=== PATIENT | female | born 1955 | race Caucasian/White ===

== ENCOUNTER 2018-09-04 13:42 | Emergency (ER) | payer OTHER ==
[2018-09-04] MEDS ORDERED: SODIUM CHLORIDE 0.9% 500 ML 500 ML IV STA (14:21)
[2018-09-04] MEDS ORDERED: DIAZEPAM 5 MG/ML 2 ML INJ IVP STA (14:21)
[2018-09-04] MEDS ORDERED: MECLIZINE 25 MG TAB PO STA (14:21)
--- NOTE | 2018-09-04 14:41 | ED ---
General Adult HPI - General Chief complaint: Dizziness Stated complaint: left side facial tingling/lightheaded/dizzy Time Seen by Provider: 09/04/18 13:45 Source: patient, RN notes reviewed Mode of arrival: ambulatory Limitations: no limitations - History of Present Illness Initial comments: This is a 62-year-old female who presents emergency Department complaining of dizziness. Patient states she feels like the room was moving. Patient states if she moves her head it's definitely worse and closing her eyes almost resolved completely. Patient states she was admitted for this and some paresthesias to her left cheek about 2 months ago. Patient states she was again admitted within the last week for the same symptoms have Come up with any solution or answer as to what is going on. Patient states she was sent home with some meclizine but she has yet to take any. Recent denies any chest pain or palpitations. Patient denies shortness of breath or difficulty breathing. Patient denies any nausea vomiting. Patient denies any recent fever chills. Patient denies headache patient denies numbness weakness. Patient denies any episode that she felt near syncopal. Recent states he symptoms are exactly the same she's had since June and they have been intermittent. Patient states in between her hospital visit she has very subtle symptoms are very similar to this but they don't last very long. - Related Data Home Medications Medication Instructions Recorded Confirmed Aspirin EC [Ecotrin Low Dose] 81 mg PO DAILY 09/04/18 09/04/18 Atorvastatin [Lipitor] 40 mg PO HS 09/04/18 09/04/18 Cetirizine HCl [Zyrtec] 10 mg PO DAILY 09/04/18 09/04/18 Cholecalciferol (Vitamin D3) 2,000 unit PO DAILY 09/04/18 09/04/18 [Vitamin D3] Clopidogrel Bisulfate [Plavix] 75 mg PO DAILY 09/04/18 09/04/18 FLUoxetine HCL [PROzac] 10 mg PO DAILY 09/04/18 09/04/18 Fluticasone Nasal [place] [Flonase 2 spray EA NOSTRIL DAILY PRN 09/04/18 09/04/18 Nasal [place]] Hydrocortisone Cream 1 applic TOPICAL BID PRN 09/04/18 09/04/18 [Hydrocortisone 1% Cream] Lisinopril [Zestril] 20 mg PO DAILY 09/04/18 09/04/18 Meclizine [Antivert] 25 mg PO TID PRN 09/04/18 09/04/18 Tolterodine Tartrate [Detrol LA] 4 mg PO DAILY 09/04/18 09/04/18 Triamcinolone 0.1% Cream [Kenalog 1 applic TOPICAL BID 09/04/18 09/04/18 0.1% Cream] Allergies Allergy/AdvReac Type Severity Reaction Status Date / Time codeine Allergy Anaphylaxis Verified 09/04/18 14:07 morphine Allergy Unknown Verified 09/04/18 14:07 Penicillins Allergy Unknown Verified 09/04/18 14:07 Review of Systems ROS Statement: Those systems with pertinent positive or pertinent negative responses have been documented in the HPI. ROS Other: All systems not noted in ROS Statement are negative. Past Medical History Past Medical History: Coronary Artery Disease (CAD), CVA/TIA, Hyperlipidemia, Hypertension History of Any Multi-Drug Resistant Organisms: None Reported Past Surgical History: Hysterectomy Past Psychological History: No Psychological Hx Reported Smoking Status: Former smoker Past Alcohol Use History: None Reported Past Drug Use History: None Reported General Exam - General Exam Comments Initial Comments: GENERAL: Patient is well-developed and well-nourished. Patient is nontoxic and well- hydrated and is in mild distress. ENT: Neck is soft and supple. No significant lymphadenopathy is noted. Oropharynx is clear. Moist mucous membranes. Neck has full range of motion without eliciting any pain. EYES: The sclera were anicteric and conjunctiva were pink and moist. Extraocular movements were intact and pupils were equal round and reactive to light. Eyelids were unremarkable. PULMONARY: Unlabored respirations. Good breath sounds bilaterally. No audible rales rhonchi or wheezing was noted. CARDIOVASCULAR: There is a regular rate and rhythm without any murmurs gallops or rubs. ABDOMEN: Soft and nontender with normal bowel sounds. SKIN: Skin is clear with no lesions or rashes and otherwise unremarkable. NEUROLOGIC: Patient is alert and oriented x3. Cranial nerves II through XII are grossly intact. Motor and sensory are also intact. Normal speech, volume and content. Symmetrical smile. Cerebellar exam grossly intact. MUSCULOSKELETAL: Normal extremities with adequate strength and full range of motion. No lower extremity swelling or edema. No calf tenderness. LYMPHATICS: No significant lymphadenopathy is noted PSYCHIATRIC: Normal psychiatric evaluation. Limitations: no limitations Course Vital Signs 09/04/18 09/04/18 13:44 16:00 Temperature 98.8 F Pulse Rate 95 76 Respiratory 18 29 H Rate Blood Pressure 118/61 121/76 O2 Sat by Pulse 100 Oximetry Medical Decision Making - Medical Decision Making EKG shows normal sinus rhythm at 83 bpm SC interval 144 tresses 98 QT interval 374 QTC is 439. Patient's EKG shows no ST segment elevation or depression or T wave abnormalities are noted. I did not repeat a computed tomography scan because the patient has had CT scans and MRIs within the last week. Patient was still very vertiginous in the emergency department and had facial paresthesias but no actual loss of sensation. - Lab Data Result diagrams: 09/04/18 14:30 09/04/18 14:30 Lab Results 09/04/18 09/04/18 09/04/18 Range/Units 14:30 14:30 14:30 WBC 7.8 (3.8-10.6) k/uL RBC 5.16 (3.80-5.40) m/uL Hgb 14.2 (11.4-16.0) gm/dL Hct 44.2 (34.0-46.0) % MCV 85.7 (80.0-100.0) fL MCH 27.5 (25.0-35.0) pg MCHC 32.1 (31.0-37.0) g/dL RDW 13.6 (11.5-15.5) % Plt Count 365 (150-450) k/uL Neutrophils % 68 % Lymphocytes % 22 % Monocytes % 6 % Eosinophils % 2 % Basophils % 1 % Neutrophils # 5.3 (1.3-7.7) k/uL Lymphocytes # 1.7 (1.0-4.8) k/uL Monocytes # 0.5 (0-1.0) k/uL Eosinophils # 0.1 (0-0.7) k/uL Basophils # 0.1 (0-0.2) k/uL PT 9.9 (9.0-12.0) sec INR 0.9 (<1.2) APTT 24.2 (22.0-30.0) sec Sodium 139 (137-145) mmol/L Potassium 4.6 (3.5-5.1) mmol/L Chloride 104 (98-107) mmol/L Carbon Dioxide 24 (22-30) mmol/L Anion Gap 11 mmol/L BUN 12 (7-17) mg/dL Creatinine 0.63 (0.52-1.04) mg/dL Est GFR (CKD-EPI)AfAm >90 (>60 ml/min/1.73 sqM) Est GFR (CKD-EPI)NonAf >90 (>60 ml/min/1.73 sqM) Glucose 96 (74-99) mg/dL Calcium 10.3 H (8.4-10.2) mg/dL Magnesium 2.0 (1.6-2.3) mg/dL Total Bilirubin 0.7 (0.2-1.3) mg/dL AST 26 (14-36) U/L ALT 45 (9-52) U/L Alkaline Phosphatase 94 (38-126) U/L Troponin I (0.000-0.034) ng/mL Total Protein 7.5 (6.3-8.2) g/dL Albumin 4.9 (3.5-5.0) g/dL 09/04/18 Range/Units 14:30 WBC (3.8-10.6) k/uL RBC (3.80-5.40) m/uL Hgb (11.4-16.0) gm/dL Hct (34.0-46.0) % MCV (80.0-100.0) fL MCH (25.0-35.0) pg MCHC (31.0-37.0) g/dL RDW (11.5-15.5) % Plt Count (150-450) k/uL Neutrophils % % Lymphocytes % % Monocytes % % Eosinophils % % Basophils % % Neutrophils # (1.3-7.7) k/uL Lymphocytes # (1.0-4.8) k/uL Monocytes # (0-1.0) k/uL Eosinophils # (0-0.7) k/uL Basophils # (0-0.2) k/uL PT (9.0-12.0) sec INR (<1.2) APTT (22.0-30.0) sec Sodium (137-145) mmol/L Potassium (3.5-5.1) mmol/L Chloride (98-107) mmol/L Carbon Dioxide (22-30) mmol/L Anion Gap mmol/L BUN (7-17) mg/dL Creatinine (0.52-1.04) mg/dL Est GFR (CKD-EPI)AfAm (>60 ml/min/1.73 sqM) Est GFR (CKD-EPI)NonAf (>60 ml/min/1.73 sqM) Glucose (74-99) mg/dL Calcium (8.4-10.2) mg/dL Magnesium (1.6-2.3) mg/dL Total Bilirubin (0.2-1.3) mg/dL AST (14-36) U/L ALT (9-52) U/L Alkaline Phosphatase (38-126) U/L Troponin I <0.012 (0.000-0.034) ng/mL Total Protein (6.3-8.2) g/dL Albumin (3.5-5.0) g/dL Disposition Clinical Impression: Vertigo, Facial paresthesia Disposition: OTHER INSTITUTION NOT DEFINED Referrals: Santo Pollard MD [Primary Care Provider] - 1-2 days Time of Disposition: 17:07 - Out of Hospital Transfer - Req. Specs Out of Hospital Transfer - Requested Specifics: Other Emergency Center ([facility])
[2018-09-04 15:01] LABS: INR 0.9 (<1.2); Partial Thromboplastin Time 24.2 sec (22.0-30.0); Prothrombin Time 9.9 sec (9.0-12.0)
[2018-09-04 15:09] LABS: Basophils # (A) 0.1 k/uL (0-0.2); Basophils % (A) 1 %; Eosinophils # (A) 0.1 k/uL (0-0.7); Eosinophils % (A) 2 %; HCT 44.2 % (34.0-46.0); HGB 14.2 gm/dL (11.4-16.0); Lymphocytes # (A) 1.7 k/uL (1.0-4.8); Lymphocytes % (A) 22 %; MCH 27.5 pg (25.0-35.0); MCHC 32.1 g/dL (31.0-37.0); MCV 85.7 fL (80.0-100.0); Mean Platelet Volume 7.6; Monocytes # (A) 0.5 k/uL (0-1.0); Monocytes % (A) 6 %; Neutrophils # (A) 5.3 k/uL (1.3-7.7); Neutrophils % (A) 68 %; Platelet Count 365 k/uL (150-450); RBC 5.16 m/uL (3.80-5.40); RDW 13.6 % (11.5-15.5); WBC 7.8 k/uL (3.8-10.6)
[2018-09-04 15:15] LABS: ALT 45 U/L (9-52); AST 26 U/L (14-36); Albumin 4.9 g/dL (3.5-5.0); Alkaline Phosphatase 94 U/L (38-126); Anion Gap 11 mmol/L; Blood Urea Nitrogen 12 mg/dL (7-17); Calcium 10.3 mg/dL (8.4-10.2); Carbon Dioxide 24 mmol/L (22-30); Chloride 104 mmol/L (98-107); Glucose 96 mg/dL (74-99); Potassium 4.6 mmol/L (3.5-5.1); Sodium 139 mmol/L (137-145); Total Bilirubin 0.7 mg/dL (0.2-1.3); Total Protein 7.5 g/dL (6.3-8.2)
--- NOTE | 2018-09-04 15:48 | XR ---
EXAMINATION TYPE: XR chest 2V DATE OF EXAM: 09/04/2018 COMPARISON: NONE HISTORY: Increasing left-sided facial numbness and dizziness 2 months. Chest pain. TECHNIQUE: Frontal and lateral views of the chest are obtained. FINDINGS: Overlying EKG leads are present. There is no focal air space opacity, pleural effusion, or pneumothorax seen. The cardiac silhouette size is mildly enlarged. The osseous structures are int act. IMPRESSION: Mild cardiomegaly without acute pulmonary process.
[2018-09-04 17:13] VITALS: RESP 18
[2018-09-04 18:35] VITALS: BP 149/88; PULSE 87; TEMP 98.6
== END 2018-09-04 18:35 | disposition other institution (70) ==
LOC: EC 13:42
DX: R42 Dizziness and giddiness (principal); R20.2 Paresthesia of skin; I25.10 Atherosclerotic heart disease of native coronary artery without angina pectoris; E78.5 Hyperlipidemia, unspecified; I10 Essential (primary) hypertension; Z86.73 Personal history of transient ischemic attack (TIA), and cerebral infarction without residual deficits; Z87.891 Personal history of nicotine dependence; Z90.710 Acquired absence of both cervix and uterus; Z79.02 Long term (current) use of antithrombotics/antiplatelets; Z79.82 Long term (current) use of aspirin; Z79.899 Other long term (current) drug therapy
CPT/HCPCS: 36415; 93005; 80053; 83735; 84484; 85025; 85610; 85730; 71046; 99285; 96374; 96361; J3360

== ENCOUNTER 2018-09-23 15:59 | Emergency (ER) | payer OTHER ==
[2018-09-23] MEDS ORDERED: SODIUM CHLORIDE 0.9% 1,000 ML IV STA ×2 (16:23→18:31)
[2018-09-23] MEDS ORDERED: SODIUM CHLORIDE 0.9% 500 ML 500 ML IV STA (16:23)
[2018-09-23] MEDS ORDERED: LORazepam 2 MG/ML INJ IV STA (16:23)
[2018-09-23 16:57] LABS: Basophils # (A) 0.1 k/uL (0-0.2); Basophils % (A) 1 %; Eosinophils # (A) 0.1 k/uL (0-0.7); Eosinophils % (A) 1 %; HCT 42.4 % (34.0-46.0); HGB 14.3 gm/dL (11.4-16.0); Lymphocytes # (A) 1.4 k/uL (1.0-4.8); Lymphocytes % (A) 18 %; MCH 28.6 pg (25.0-35.0); MCHC 33.7 g/dL (31.0-37.0); Mean Platelet Volume 7.4; Monocytes # (A) 0.5 k/uL (0-1.0); Monocytes % (A) 7 %; Neutrophils # (A) 5.8 k/uL (1.3-7.7); Neutrophils % (A) 72 %; Platelet Count 332 k/uL (150-450); RBC 4.99 m/uL (3.80-5.40); RDW 13.2 % (11.5-15.5); WBC 8.1 k/uL (3.8-10.6)
[2018-09-23 17:05] LABS: Anion Gap 14 mmol/L; Blood Urea Nitrogen 13 mg/dL (7-17); Calcium 10.6 mg/dL (8.4-10.2); Carbon Dioxide 18 mmol/L (22-30); Chloride 110 mmol/L (98-107); Glucose 95 mg/dL (74-99); Potassium 4.4 mmol/L (3.5-5.1); Sodium 142 mmol/L (137-145)
--- NOTE | 2018-09-23 17:08 | ED ---
Dizziness HPI - General Chief Complaint: Dizziness Stated Complaint: tremors Time Seen by Provider: 09/23/18 16:13 Source: patient, EMS Mode of arrival: EMS Limitations: no limitations - History of Present Illness Initial Comments: This 63-year-old white female presents with complaint of some dizziness as well as tremor, lightheadedness, and shortness of breath. She relates that she's had similar symptoms for the past 3 months. She apparently has been worked up at [facility] and has been seeing a neurologist out of [facility]. She was sent today to have an MRI scan when her symptoms worsened. She states that she was able once to have a MRI scan done but was sedated and essentially put completely out for it. She otherwise is claustrophobic. She tried to have an MRI and an open MRI scan facility today but her symptoms apparently significantly increased. She has been hyperventilating and states that her legs feel heavy. She states that the lightheadedness has worsened and she has significant dizziness worse when she opens her eyes. She apparently does have a history of vertigo as well. She did try and Antivert without any relief. She denies any other complaints or modifying factors. - Related Data Home Medications Medication Instructions Recorded Confirmed Aspirin EC [Ecotrin Low Dose] 81 mg PO DAILY 09/04/18 09/23/18 Atorvastatin [Lipitor] 40 mg PO HS 09/04/18 09/23/18 Cetirizine HCl [Zyrtec] 10 mg PO DAILY 09/04/18 09/23/18 Cholecalciferol (Vitamin D3) 2,000 unit PO DAILY 09/04/18 09/23/18 [Vitamin D3] Clopidogrel Bisulfate [Plavix] 75 mg PO DAILY 09/04/18 09/23/18 FLUoxetine HCL [PROzac] 10 mg PO DAILY 09/04/18 09/23/18 Fluticasone Nasal [place] [Flonase 2 spray EA NOSTRIL DAILY PRN 09/04/18 09/23/18 Nasal [place]] Lisinopril [Zestril] 20 mg PO DAILY 09/04/18 09/23/18 Meclizine [Antivert] 25 mg PO TID PRN 09/04/18 09/23/18 Tolterodine Tartrate [Detrol LA] 4 mg PO DAILY 09/04/18 09/23/18 Triamcinolone 0.1% Cream [Kenalog 1 applic TOPICAL BID 09/04/18 09/23/18 0.1% Cream] Allergies Allergy/AdvReac Type Severity Reaction Status Date / Time codeine Allergy Anaphylaxis Verified 09/23/18 16:32 morphine Allergy Unknown Verified 09/23/18 16:32 Penicillins Allergy Unknown Verified 09/23/18 16:32 Review of Systems ROS Statement: Those systems with pertinent positive or pertinent negative responses have been documented in the HPI. ROS Other: All systems not noted in ROS Statement are negative. Past Medical History Past Medical History: Coronary Artery Disease (CAD), CVA/TIA, Hyperlipidemia, Hypertension History of Any Multi-Drug Resistant Organisms: None Reported Past Surgical History: Hysterectomy Past Psychological History: No Psychological Hx Reported Smoking Status: Former smoker Past Alcohol Use History: None Reported Past Drug Use History: None Reported General Exam - General Exam Comments Initial Comments: GENERAL: The patient is well nourished and well hydrated. VITAL SIGNS: Heart rate, blood pressure, respiratory rate reviewed as recorded in nurse's notes. EYES: Pupils are round and reactive. Extraocular movements are intact. No conjunctival / lid redness or swelling. ENT: No external evidence of injury, swelling, or ecchymosis. Airway is patent. Throat is clear. NECK: Nontender. No swelling or evidence of injury. No subcutaneous emphysema. Trachea is midline. No thyroid mass. HEART: Regular rate and rhythm. Good peripheral pulses. LUNGS/CHEST: Breath sounds clear and equal bilaterally. No rales, rhonchi, or wheezes. No ecchymosis, subcutaneous emphysema, or tenderness. ABDOMEN: Abdomen soft without tenderness. No palpable masses or organomegaly. No peritoneal signs. No abdominal wall swelling or ecchymosis. EXTREMITIES: No extremity tenderness. Normal muscle tone and function. No thoracolumbar tenderness. NEUROLOGIC: Sensation is grossly intact. Cranial nerve exam reveals face is symmetrical, tongue is midline, speech is clear. The patient does not have any extremity weakness or facial droop noted. Mild tremor noted of upper extremities. SKIN: No abrasions or ecchymosis is noted. No induration or masses noted. PSYCHIATRIC: Alert and oriented. She appears fairly anxious and is hyperventilating. Limitations: no limitations Course Vital Signs 09/23/18 09/23/18 09/23/18 16:01 17:32 18:47 Temperature 98.8 F Pulse Rate 93 91 90 Respiratory 18 18 20 Rate Blood Pressure 144/79 116/78 148/87 O2 Sat by Pulse 99 96 97 Oximetry Medical Decision Making - Medical Decision Making The patient was seen and examined. All diagnostics were reviewed. An IV is established and she receives Ativan 1 g IV. The patient was placed on quality assurance monitor final no is identified. The EKG shows a normal sinus rhythm at a rate of 88. There is no acute ST-T wave changes identified. There may be an incomplete right bundle-branch block. The AL intervals 142, QRS duration is 102, and the QTc interval is 498. Overall, she appears quite anxious and is also having vertigo symptoms and is felt as though the Ativan should help. She is, overall, feeling improved on recheck. She states that the vertigo still is fairly persistent but her legs do not feel heavy anymore and her hyperventilation and lightheadedness are improved. The laboratory overall is unremarkable except for a slight decrease in her CO2. Additional fluids are given. The computed tomography scan of the brain does show evidence of old lacunar infarct. The case is discussed with our radiologist and regard to the acuity of the infarct. He feels as though this likely is subacute in nature but within the last 1 week. She is able to ambulate on recheck but is extremely unsteady and is unable to do so without assistance. She states that the vertigo still is persistent. It is felt as though she would benefit from admission and further neurologic evaluation and potential additional testing. She likely will need significant sedation for a MRI scan in the future. She states that her neurologist is out of [place], Dr. Pretty, and she would like to be transferred to that facility. The case is discussed with Dr. Robertson and he is agreeable with accepting patient. Appropriate transfer paperwork is completed. She will be transferred via EMS. - Lab Data Result diagrams: 09/23/18 16:36 09/23/18 16:36 Lab Results 09/23/18 09/23/18 Range/Units 16:36 16:36 WBC 8.1 (3.8-10.6) k/uL RBC 4.99 (3.80-5.40) m/uL Hgb 14.3 (11.4-16.0) gm/dL Hct 42.4 (34.0-46.0) % MCV 85.0 (80.0-100.0) fL MCH 28.6 (25.0-35.0) pg MCHC 33.7 (31.0-37.0) g/dL RDW 13.2 (11.5-15.5) % Plt Count 332 (150-450) k/uL Neutrophils % 72 % Lymphocytes % 18 % Monocytes % 7 % Eosinophils % 1 % Basophils % 1 % Neutrophils # 5.8 (1.3-7.7) k/uL Lymphocytes # 1.4 (1.0-4.8) k/uL Monocytes # 0.5 (0-1.0) k/uL Eosinophils # 0.1 (0-0.7) k/uL Basophils # 0.1 (0-0.2) k/uL Sodium 142 (137-145) mmol/L Potassium 4.4 (3.5-5.1) mmol/L Chloride 110 H (98-107) mmol/L Carbon Dioxide 18 L (22-30) mmol/L Anion Gap 14 mmol/L BUN 13 (7-17) mg/dL Creatinine 0.60 (0.52-1.04) mg/dL Est GFR (CKD-EPI)AfAm >90 (>60 ml/min/1.73 sqM) Est GFR (CKD-EPI)NonAf >90 (>60 ml/min/1.73 sqM) Glucose 95 (74-99) mg/dL Calcium 10.6 H (8.4-10.2) mg/dL Disposition Clinical Impression: Anxiety reaction, Claustrophobia, Vertigo, Tremor, Lightheadedness, Hypertension, Lacunar infarction Disposition: OTHER INSTITUTION NOT DEFINED Condition: Fair Is patient prescribed a controlled substance at d/c from ED?: No Time of Disposition: 19:04 - Out of Hospital Transfer - Req. Specs Out of Hospital Transfer - Requested Specifics: Other Emergency Center ([facility]
--- NOTE | 2018-09-23 17:46 | CT ---
EXAMINATION TYPE: CT brain wo con DATE OF EXAM: 09/23/2018 COMPARISON: None HISTORY: Dizziness and sense of falling for [address] DLP: 1129.4 mGycm Automated exposure control for dose reduction was used. FINDINGS: There is poorly marginated 2 x 1 cm area of hypodensity in the left posterior frontal lobe white cuco er. There is no mass effect nor midline shift. There is no sign of intracranial hemorrhage. The elza rium is intact. IMPRESSION: LEFT SIDE WHITE MATTER HYPODENSITY CONSISTENT WITH LACUNAR INFARCT. NO HEMORRHAGE. NO CORTICAL INFARC T SEEN.
[2018-09-23] MEDS ORDERED: ASPIRIN 81 MG PO STA (18:31)
[2018-09-23 20:20] VITALS: BP 143/85; PULSE 79; RESP 18; TEMP 98.9
== END 2018-09-23 20:26 | disposition other institution (70) ==
LOC: EC 15:59
DX: F41.1 Generalized anxiety disorder (principal); F40.240 Claustrophobia; I10 Essential (primary) hypertension; R25.1 Tremor, unspecified; R42 Dizziness and giddiness; I25.10 Atherosclerotic heart disease of native coronary artery without angina pectoris; E78.5 Hyperlipidemia, unspecified; Z79.02 Long term (current) use of antithrombotics/antiplatelets; Z79.82 Long term (current) use of aspirin; Z79.899 Other long term (current) drug therapy; Z88.0 Allergy status to penicillin; Z88.5 Allergy status to narcotic agent; Z87.891 Personal history of nicotine dependence; Z86.73 Personal history of transient ischemic attack (TIA), and cerebral infarction without residual deficits
CPT/HCPCS: 36415; 93005; 80048; 85025; 70450; 99285; 96374; 96361 ×4; J2060

== ENCOUNTER → 2022-08-18 | Outpatient (CLI) | payer MEDICARE ==
--- NOTE | 2022-08-20 07:31 | PE ---
EXAMINATION TYPE: PET CT fusion skull to thigh DATE OF EXAM: 08/18/2022 COMPARISON: Chest CT July 27, 2022 HISTORY: Solitary pulmonary nodule, abnormal CT. TECHNIQUE: Following the intravenous administration of 13.16 mCi of F-18 FDG, whole body images are performed from the skull base to the midthigh. Images are reviewed on the computer in the coronal, a xial, and sagittal planes. Reconstructed rotating images are created on independent workstation and reviewed on the computer. A localization and attenuation correction CT is performed in conjunction with the PET scan. Blood glucose level equals 76. SCAN: Initial Scan FINDINGS: SKULL BASE AND NECK: Symmetric prominent uptake at the vocal cords is present in product of phonatio n. No suspicious abnormal hypermetabolic uptake. CHEST, MEDIASTINUM, AND HILAR REGION: Persistent right upper lung posterior nodule or nodular consoli dation measuring 2.7 x 2.5 cm axial image 68 with mild hypermetabolic uptake, max SUV is 2.51. Additi onal second area of spiculated nodule or nodular consolidation anterior inferior to this measuring 2. 4 x 1.3 cm on axial image 77 shows minimal hypermetabolic uptake, max SUV less than 2.0. There are ne ar 1.0 cm nodules and/or nodular consolidations in the lateral left lower lung redemonstrated. Refere nce axial images 94 and 96. No hypermetabolic thoracic lymph nodes. ABDOMEN AND PELVIS: Normal excretion is present. No hypermetabolic adrenal masses. No areas of abnorm al hypermetabolic uptake. OSSEOUS STRUCTURES: No areas of abnormal hypermetabolic uptake. OTHER CT: Enlarged pulmonary arteries consistent with pulmonary artery hypertension. Clinical splenic hilum are seen. Diverticula throughout the colon is present. Uterus is surgically ab sent. IMPRESSION: Thoracic findings as above could reflect bilateral multifocal acute infectious process. C orrelate clinically. However neoplasm such as metastatic disease remains in the differential. Correl ate clinically. Short-term follow-up CT scan in 2 -3 months time would be beneficial.
== END | disposition home or self-care (01) ==
LOC: RADPETMAIN 14:22
PROVIDERS: ATTEND Internal Medicine Critical Care Medicine
DX: R91.1 Solitary pulmonary nodule (principal)
CPT/HCPCS: 78815; A9552

== ENCOUNTER 2022-10-12 10:19 | Day surgery (SDC) | payer MEDICARE ==
[~2022-10-12 10:19] MED LIST: LACTATED RINGERS 1,000 ML IV SCH; LIDOCAINE 1% (10MG/ML) FOR IV START INTRADERMA PRN
[2022-10-12] MEDS ORDERED: ONDANSETRON 4 MG/2 ML VIAL ONE (11:20)
[2022-10-12] MEDS ORDERED: ONDANSETRON 4 MG/2 ML VIAL IVP ONE (11:22)
[2022-10-12] MEDS ORDERED: DEXAMETHASONE SOD PHOSPHATE 4 MG/ML 1 ML VIAL IVP ONE (11:23)
--- NOTE | 2022-10-12 11:52 | CT ---
EXAMINATION TYPE: CT chest wo con CT DLP: 477.7 mGycm, Automated exposure control for dose reduction was used. DATE OF EXAM: 10/12/2022 10:49 AM COMPARISON: CT chest 07/27/2022, PET 08/18/2022 CLINICAL INDICATION:Female, 67 years old with history of pulmonary nodules;, Ion bronchoscopy. TECHNIQUE: Multiple axial images were obtained through the chest. Sagittal and coronal reformats were created for review. Contrast used: none. Oral contrast used: none. FINDINGS: LUNGS/ PLEURA: Interval decrease in size of pulmonary nodules. * Right upper lobe 4 mm series 4 image 81, previously 9 mm. * Right upper lobe posterior groundglass consolidative changes measuring somewhat disconnected with 2 nodules by groundglass opacity in today's exam measuring in totality 27 x 13 mm, Previous ly more solid-appearing and 29 x 25 cm. * Right upper lobe more anterior pulmonary nodule now measuring 10 x 10 mm, previously 18 x 21 mm wi th surrounding groundglass on prior exam. * Right lower lobe 4 mm image 191, previously not visualized. * Right lower lobe peripheral nodules now measuring 3 mm, previously 4 mm and more posteriorly near the diaphragm measuring 8 mm image 224, previously 11 mm. * Left anterior lower lobe nodule measuring 6 mm, previously 7 mm with surrounding groundglass. * Lingular nodule measuring 7 mm, previously 8 mm No focal consolidation, pneumothorax or pleural effusion. AIRWAY: Patent and unremarkable. HEART: Size within normal limits. Coronary artery atherosclerosis. Aortic valve leaflet calcification s. MEDIASTINUM: No gross evidence of adenopathy. VASCULATURE: No aortic aneurysm. MUSCULOSKELETAL: No acute osseous abnormalities SOFT TISSUES/LYMPH NODES: Posterior right thyroid gland nodule measuring 15 mm. LOWER NECK: No significant findings. UPPER ABDOMEN: Suspected embolic coil material in the splenic hilum. Low-attenuation to the liver par enchyma. IMPRESSION: 1. Scattered pulmonary nodules, a majority of which have decreased in size compared to prior. Some o f these have a groundglass halo. Correlate with pathology, some of the appearance of hazy ground glas s halo suggestive of angioinvasive with other differentials including metastatic disease versus other infectious processes. Clinical correlation advised. 2. Right posterior thyroid gland nodule measuring 15 mm similar to prior. 3. No lymphadenopathy identified.
[2022-10-12] MEDS ORDERED: SUCCINYLCHOLINE CHLORIDE 200 MG/10 ML VIAL IV ONE (12:46)
[2022-10-12] MEDS ORDERED: LIDOCAINE 2% INJ 20 MG/ML (2 ML VIAL) ONE (12:46)
[2022-10-12] MEDS ORDERED: GLYCOPYRROLATE 0.2 MG/ML 2 ML VIAL ONE (12:46)
[2022-10-12] MEDS ORDERED: KETAMINE 10 MG/ML 20 ML VIAL ONE (12:46)
[2022-10-12] MEDS ORDERED: fentaNYL (PF) 50 MCG/ML 2 ML AMP ONE (12:46)
[2022-10-12] MEDS ORDERED: MIDAZOLAM 2 MG/2 ML VIAL ONE (12:46)
[2022-10-12] MEDS ORDERED: PROPOFOL 10 MG/ML 20 ML VIAL IV ONE (12:46)
[2022-10-12] MEDS ORDERED: NEOSTIGMINE 1 MG/ML 10 ML VIAL ONE (12:46)
--- NOTE | 2022-10-12 14:13 | P.PCN ---
Date of Procedure: 10/12/22 Operative Findings: Preoperative Diagnosis: Right upper lobe lesions (#1 and #2) Postoperative Diagnosis: Right upper lobe lesions (#1 and #2) Procedure(s) Performed: Flexible bronchoscopy Robotic-assisted bronchoscopy and addition to radial ultrasound evaluation of the lung lesions Robotic-assisted test monitor needle aspirate, transbronchial biopsies, transbronchial brushing of the rightupper lobe mass in addition to a bronchioloalveolar lavage (lesions #1 and #2) Anesthesia: DANIALA Surgeon: Durga Albert Estimated Blood Loss (ml): 0 Pathology: other Condition: stable Disposition: same day Operative Findings: A physical exam was performed. Informed consent was obtained from the patient after explaining all the risks (pneumothorax, life threatening bleeding, infection and adverse effects due to medications), benefits and alternatives to the procedure which the patient appeared to understand and so stated. The patient was connected to the monitoring devices. General anesthesia was induced and the patient was intubated by anesthesia. A final timeout was performed and the procedure confirmed by the attending staff bronchoscopist. The bronchoscope was inserted and the airway examined. The flexible bronchoscope was removed and the robotic bronchoscope was inserted. Registration was completed. I next guided the robotic bronchoscope using the navigation system into the right upper lobe anterior segment segment. Once in proper position, the bronchoscope was frozen. The radial EBUS probe was placed through the bronchoscope and confirmed abnormal u/s images vs normal lung. A needle was placed through the working channel and under fluoroscopic guidance, we sampled the area thought to have the mass twice. We then used a cloud biopsy pattern with ultrasound confirmation for 4 additional passes with the needle. U/S evaluation was then used to reconfirm location. Forceps were next introduced through working channel and extended the appropriate distance and 3 transbronchial biopsies were performed using fluoroscopic guidance. The u/s probe was then reinserted to confirm location. When confirmed this process was repeated for a total of 5-6 transbronchial biopsies. After reassessment with EBUS, a brush was placed through the extendable working channel for 1 pass with fluoroscopic guidance. U/S evaluation was then used to confirm location. 20ml of saline was then instilled into the area of the lesion. The robotic br onchoscope was removed and the airway inspected with a flexible bronchoscope and 10 ml of effluent from the BAL was collected. The same procedure was also done for lesion #2. The catheter was navigated to the right upper lobe anterior segment thyroid lesion #2. Using same technique with robotic and radial ultrasound guidance, transbronchial needle aspirate, transbronchial biopsies of lesion #2 was done. A bronchioloalveolar lavage of the right upper lobe lesion #2 was also done. The flexible bronchoscope was used to therapeutic airway suctioning. Fluoroscopic check for pneumothorax was negative upon completion of the procedure. There was 0 ml blood loss with the procedure. FINDINGS: 1.The airway examination revealed some narrowing of the sub segment leading to the right upper lobe pulmonary nodule. The rest of the airways appeared normal 2 Successful navigation, ultrasonographic identification, and biopsies of right upper lobe mass (lesion 1 and lesion #2) RECOMMENDATIONS: Await pathology and cytology results The referring physician will be alerted to the results when available. The patient was advised to follow up with the referring physician with the biopsy results Patient will be called with results.
[2022-10-12 14:19] VITALS: TEMP 97.2
--- NOTE | 2022-10-12 14:51 | XR ---
EXAMINATION TYPE: XR chest 1V DATE OF EXAM: 10/12/2022 COMPARISON: 09/04/2018 HISTORY: 67 year-old female post biopsy TECHNIQUE: Single frontal view of the chest is obtained. FINDINGS: Heart upper limits of normal in size. Focal opacity right midlung. New focal opacity media l right upper lobe. Some stranding areas of atelectasis bilaterally. No pleural effusion. Metallic co ils left upper quadrant. IMPRESSION: New focal opacities medial right upper lobe and right midlung. Findings likely correspond to some pos tbiopsy change/contusion. No appreciable pneumothorax.
[2022-10-12 15:38] VITALS: RESP 16
[2022-10-12 15:55] VITALS: BP 132/82; PULSE 64
--- NOTE | 2022-10-12 19:51 | FL ---
EXAMINATION TYPE: FL bronchoscopy DATE OF EXAM: 10/12/2022 FLUOROSCOPY Fluoroscopy time of 4 minutes 6 seconds was used during bronchoscopy for pulmonary nodule. 2 image/s document/s the procedure. DOSE AREA PRODUCT (DAP) UGY*M,MGY*CM: 28.85
== END 2022-10-12 17:05 | disposition home or self-care (01) ==
LOC: ORWHC2ENDO 10:19
PROVIDERS: ATTEND Internal Medicine Critical Care Medicine
DX: R91.1 Solitary pulmonary nodule (principal); J98.4 Other disorders of lung; Z88.0 Allergy status to penicillin; Z88.1 Allergy status to other antibiotic agents; Z88.5 Allergy status to narcotic agent; I25.10 Atherosclerotic heart disease of native coronary artery without angina pectoris; I49.5 Sick sinus syndrome; I49.3 Ventricular premature depolarization; I10 Essential (primary) hypertension; E78.5 Hyperlipidemia, unspecified; Z87.891 Personal history of nicotine dependence; F41.9 Anxiety disorder, unspecified; F32.A Depression, unspecified; Z86.73 Personal history of transient ischemic attack (TIA), and cerebral infarction without residual deficits; Z79.02 Long term (current) use of antithrombotics/antiplatelets; Z79.899 Other long term (current) drug therapy; Z79.51 Long term (current) use of inhaled steroids
CPT/HCPCS: 31629; S2900; 31623; 31624; 31628; 31633; 71045; 71250; 87070; 87102; 87116; 87205; 87206; 87252; 87496; 87498; 87502; 87529; 87634; 87798; 88108; 88305